=== PATIENT | male | born 1995 | race African-American/Black ===

== ENCOUNTER 2020-09-20 21:38 | Emergency (ER) | payer OTHER ==
[~2020-09-20] VITALS: Ht 182.9 cm; Wt 91.6 kg
[2020-09-20] MEDS ORDERED: diphenhydrAMINE 50MG CAP PO ONE (23:15)
[2020-09-20 23:30] VITALS: BP 146/94
== END 2020-09-20 23:43 | disposition home or self-care (01) ==
LOC: M ED 21:38
DX: R07.0 Pain in throat (principal)